=== PATIENT | female | born 1990 | race Caucasian/White ===

== ENCOUNTER 2019-07-18 19:46 | Emergency (ER) | payer OTHER ==
[2019-07-18 19:56] VITALS: BMI 32.8
[2019-07-18] MEDS ORDERED: ACETAMINOPHEN 500 MG TABLET (FP) PO ONE ×2 (20:29→20:52)
--- NOTE | 2019-07-18 20:36 | PDOC ---
History of Present Illness - General Chief Complaint: Asthma Stated Complaint: ASTHMA/ DIFF BREATHING/ CHEST PAIN Time Seen by Provider: 07/18/19 20:11 History Source: Patient Exam Limitations: No Limitations - History of Present Illness Initial Comments: 07/18/19 20:31 HISTORY OF PRESENT ILLNESS: 28-year-old woman past medical history of asthma (4- 5 annual visits for asthma related complaints), hypertension, migraines who presents emergency department for evaluation of cough, headache, runny nose and shortness of breath. Patient denies any recent travel or sick contacts. Patient was seen and evaluated at [facility] yesterday told she had an upper respiratory infection was prescribed Flovent and albuterol pumps. Patient reports has been taken a pumps with little relief from symptoms. She denies any fevers, chills, chest pain, abdominal pain, nausea, vomiting or diarrhea. Patient's headache is different than her usual migraine pattern. No recent travel or sick contacts. PAST MEDICAL HISTORY: See HPI SURGICAL HISTORY: Denies ALLERGIES: No known drug allergies; shellfish REVIEW OF SYSTEMS General/Constitutional: Denies fever or chills. Denies weakness, weight change. HEENT: Denies change in vision. Denies ear pain or discharge. Denies sore throat. Cardiovascular: Denies chest pain or shortness of breath. Respiratory: See HPI Gastrointestinal: Denies nausea, vomiting, diarrhea or constipation. Denies rectal bleeding. Genitourinary: Denies dysuria, frequency, or change in urination. Musculoskeletal: Denies joint or muscle swelling or pain. Denies neck or back pain. Skin and breasts: Denies rash or easy bruising. Neurologic: Denies headache, vertigo, loss of consciousness, or loss of sensation. Psychiatric: Denies depression or anxiety. Endocrine: Denies increased thirst. Denies abnormal weight change. Hematologic/Lymphatic: Denies anemia, easy bleeding, or history of blood clots. Allergic/Immunologic: Denies hives or skin allergy. Denies latex allergy. PHYSICAL EXAM General Appearance: Well-appearing, appropriately dressed. No apparent distress, no intoxication. HEENT: EOMI, PERRLA, normal ENT inspection, normal voice, TMs normal, pharynx normal. No conjunctival pallor. No photophobia, scleral icterus. Neck: Supple. Trachea midline. No tenderness, rigidity, carotid bruit, stridor, lymphadenopathy, or thyromegaly. Respiratory/Chest: Lungs CTAB. No shortness of breath, chest tenderness, respiratory distress, accessory muscle use. No crackles, rales, rhonchi, stridor, dullness. Scattered expiratory wheezes present. Cardiovascular: RRR. S1, S2. No JVD, murmur, bradycardia, tachycardia. Integumentary: Appropriate color, dry, warm. No cyanosis, erythema, jaundice or rash Neurologic: barrel liner II-XII intact. Fully oriented, alert. Appropriate mood/affect. Motor strength 5/5. No appreciable EOM palsy, facial droop or sensory deficit. 07/18/19 20:53 Past History - Past Medical History Allergies/Adverse Reactions: Allergies Allergy/AdvReac Type Severity Reaction Status Date / Time shellfish derived Allergy Verified 07/18/19 19:56 Home Medications: Ambulatory Orders Prednisone [Prednisone 50 MG TABLETS] 50 mg PO DAILY #4 tablet 07/18/19 COPD: No - Psycho Social/Smoking Cessation Hx Smoking History: Never smoked *Physical Exam - Vital Signs Last Vital Signs Temp Pulse Resp BP Pulse Ox 98.4 F 93 H 18 141/65 97 07/18/19 19:52 07/18/19 19:52 07/18/19 19:52 07/18/19 19:52 07/18/19 19:52 Medical Decision Making - Medical Decision Making 07/18/19 20:34 A/P: 28-year-old woman with URI symptoms for 4 to 5 days Most likely asthma exacerbation secondary to upper respiratory infection. Low risk for Covid-19 as patient has no fevers, sick contacts or myalgias. Thad gore Patient refusing prednisone at this time Tylenol 1 g orally now Reassess 07/18/19 22:50 Patient reports breathing is mildly improved after receiving nebulizer treatments and repeat lung exam reveals clear lungs. Patient reports still having little tightness with deep inspiration and agrees to prednisone at this time. Prednisone 60 mg orally now. Patient also reports complete resolution of headache. Discharge - Discharge Information Problems reviewed: Yes Clinical Impression/Diagnosis: Asthma Qualifiers: Asthma severity: mild Asthma persistence: intermittent Asthma complication type: with acute exacerbation Qualified Code(s): J45.21 - Mild intermittent asthma with (acute) exacerbation Headache Qualifiers: Headache type: unspecified Headache chronicity pattern: acute headache Intractability: not intractable Qualified Code(s): R51 - Headache Condition: Fair Disposition: HOME - Admission No - Additional Discharge Information Prescriptions: Prednisone [Prednisone 50 MG TABLETS] 50 mg PO DAILY #4 tablet - Follow up/Referral Referrals: [facility] [place] [facility] [place] [Provider Group] - Patient Discharge Instructions Additional Instructions: Rest, drink lots of fluids: Teas, water, soups, Pedialyte Steamy showers/seem to face break up mucus Avoid contact with others until fevers and cough resolved Lots of handwashing and good hygiene Continue [id number] medications for symptomatic relief Tylenol or Motrin for fever and pain Continue albuterol pump Prednisone as directed until completed Followup with private physician in one to 2 days Return to emergency department / pediatric hospital for worsened symptoms, fevers, dehydration magdaleno Phelpsos lquidos: ts, agua, sopas, pedialyte Duchas de vapor / parecen enfrentar la mucosidad Evite el contacto con otros hasta que la fiebre y la tos se hayan resuelto. Lavado de khang y buena higiene. Continuar con los medicamentos de venta rachel para el alivio sintomtico. Tylenol o Motrin para la fiebre y el dolor. Continuar con la bomba de albuterol Prednisona guerrero se indica hasta completar Seguimiento con un mdico privado en [place] o dos persaud. Regrese al departamento de emergencias / hospital peditrico por sntomas empeorados, fiebre, deshidratacin. - Post Discharge Activity
[2019-07-18] MEDS ORDERED: ACETAMINOPHEN 325 MG TABLET (FP) ONE (20:43)
[2019-07-18] MEDS ORDERED: ALBUTEROL SO4 2.5/IPRATROPIUM 0.5 INH SOL 3 ML VIAL.NEB. NEB ONE (20:43)
[2019-07-18] MEDS ORDERED: IBUPROFEN 600 MG TABLET (FP) PO ONE ×2 (20:53)
[2019-07-18] MEDS ORDERED: SODIUM CHLORIDE 1,000 ML IV STA (20:56)
[2019-07-18] MEDS ORDERED: METOCLOPRAMIDE HCL INJECTION 10 MG/2 ML VIAL IVPUSH ONE (20:56)
[2019-07-18] MEDS: ALBUTEROL SO4 2.5/IPRATROPIUM 0.5 INH SOL 3 ML VIAL.NEB. NEB SCH ×3 (21:05→21:46)
[2019-07-18] MEDS ORDERED: METOCLOPRAMIDE HCL INJECTION 10 MG/2 ML VIAL ONE (21:10)
[2019-07-18] MEDS ORDERED: predniSONE 20 MG TABLET (UD) PO ONE (22:50)
[2019-07-18] MEDS ORDERED: diphenhydrAMINE HCL 25 MG CAPSULE (FP) PO ONE (23:44)
[2019-07-19] MEDS ORDERED: predniSONE 20 MG TABLET (UD) ONE (00:04)
[2019-07-19] MEDS ORDERED: diphenhydrAMINE HCL 25 MG CAPSULE (FP) PO ONE (00:05)
[2019-07-19 00:40] VITALS: TEMP 97.7
[2019-07-19 00:44] VITALS: BP 105/62; PULSE 83
== END 2019-07-19 00:10 | disposition home or self-care (01) ==
LOC: JERFT 19:46
PROC: 3E0F7GC Introduction of Other Therapeutic Substance into Respiratory Tract, Via Natural or Artificial Opening (ICD-10-PCS; principal; 2019-07-18)
PROC: 3E033GC Introduction of Other Therapeutic Substance into Peripheral Vein, Percutaneous Approach (ICD-10-PCS; 2019-07-18)
PROC: 3E033GC Introduction of Other Therapeutic Substance into Peripheral Vein, Percutaneous Approach (ICD-10-PCS; 2019-07-18)
DX: J45.21 Mild intermittent asthma with (acute) exacerbation (principal); R51 Headache
CPT/HCPCS: 99284-25; J7030